=== PATIENT | male | born 1960 | race Caucasian/White ===

== ENCOUNTER 2017-11-05 17:00 | Emergency (ER) | payer BC ==
[~2017-11-05] VITALS: Ht 188 cm; Wt 124.9 kg
[2017-11-05 18:34] LABS: CHLORIDE 108 mEq/L (99-109); POTASSIUM 4.8 mEq/L (3.7-5.4); SODIUM 140 mEq/L (136-147)
[2017-11-05 18:36] LABS: GLUCOSE 109 mg/dL (70-99)
[2017-11-05 18:40] LABS: CREATININE 1.4 mg/dL (0.6-1.3); GFR ESTIMATE (CALCULATED) 55 mL/min/ (58.99-99999)
[2017-11-05 18:41] LABS: UREA NITROGEN (BUN) 16 mg/dL (9-23)
[2017-11-05 19:55] LABS: HEMATOCRIT 40.1 % (38.0-50.0); HEMOGLOBIN 13.4 G/DL (12.5-16.6); MCH 34.5 PG (29.0-34.0); MCHC 33.4 G/DL (30.0-36.0); MCV 103.4 FL (86-99); PLATELET COUNT 269 K/uL (156-360); RED BLOOD COUNT 3.88 M/uL (4.00-5.50); WHITE BLOOD COUNT 6.2 K/uL (4.1-10.2)
[2017-11-05 20:57] LABS: ERTH.SED.RATE 59 MM/HR (0-20)
[2017-11-05] MEDS ORDERED: REGLAN10 MG PO (21:26)
[2017-11-05] MEDS ORDERED: TORADOL10 MG PO (21:26)
[2017-11-05 21:43] VITALS: BP 124/84
== END 2017-11-05 21:44 | disposition home or self-care (01) ==
LOC: EME 17:00
DX: G43.909 Migraine, unspecified, not intractable, without status migrainosus (principal); J32.9 Chronic sinusitis, unspecified; Z86.718 Personal history of other venous thrombosis and embolism; Z79.01 Long term (current) use of anticoagulants; Z85.048 Personal history of other malignant neoplasm of rectum, rectosigmoid junction, and anus
CPT/HCPCS: 70450; 80048; 85027; 85651; 99281; 99284; J1100; J1200; J1885; J2765; J7030